=== PATIENT | female | born 1960 | race Caucasian/White ===

== ENCOUNTER → 2021-01-14 | Day surgery (SDC) | payer OTHER ==
[~2021-01-14] MED LIST: ABILIFY2 MG PO; AUGMENTIN 875-1 EACH PO; CLINDAMYCIN HC300 MG PO; CYMBALTA60 MG PO; DULOXETINE HCL60 MG PO; GABAPENTIN800 MG PO; IPRAT-ALBUT 0.5-3 ML INH; KLONOPIN TAB 00.5 MG PO; LISINOPRIL10 MG PO; NEURONTIN 100100 MG PO; PRAVASTATIN SOD20 MG PO; PROVENTIL HFA6.7 GM INH; SPIRONOLACTONE1 EACH PO; ULTRAM50 MG PO
== END | disposition home or self-care (01) ==
LOC: OR 07:27
DX: K57.30 Diverticulosis of large intestine without perforation or abscess without bleeding (principal); K63.89 Other specified diseases of intestine; K64.0 First degree hemorrhoids; J44.9 Chronic obstructive pulmonary disease, unspecified; F17.210 Nicotine dependence, cigarettes, uncomplicated; E66.01 Morbid (severe) obesity due to excess calories; Z68.34 Body mass index [BMI] 34.0-34.9, adult; Z85.3 Personal history of malignant neoplasm of breast
CPT/HCPCS: J2704; J7040

== ENCOUNTER → 2021-03-22 | Outpatient (CLI) | payer OTHER | LOC: CT 13:29 | DX: R10.31 Right lower quadrant pain (principal); I10 Essential (primary) hypertension | CPT/HCPCS: Q9967 ==

== ENCOUNTER 2021-08-24 06:04 | Inpatient (IN) | payer OTHER ==
[~2021-08-24] VITALS: Ht 154.9 cm; Wt 68.0 kg
[~2021-08-24 06:04] MED LIST changes: -NEURONTIN 100100 MG PO; +NEURONTIN400 MG PO
[2021-08-24 06:32] LABS: HEMOGLOBIN 15.4 gm/dl (12.3-15.3); RED BLOOD COUNT 4.91 M/UL (4.00-5.10); WHITE BLOOD COUNT 11.6 K/UL (4.5-11.0)
[2021-08-24 06:47] LABS: BUN/CREATININE RATIO 16 (0-10)
[2021-08-24] MEDS ORDERED: BUPROPION HCL150 M1 PO (10:37)
[2021-08-24] MEDS ORDERED: KLONOPIN0.5 MG PO (10:38)
[2021-08-25 05:34] LABS: BUN/CREATININE RATIO 24 (0-10)
[2021-08-25 05:35] LABS: HEMOGLOBIN 14.5 gm/dl (12.3-15.3); RED BLOOD COUNT 4.67 M/UL (4.00-5.10); WHITE BLOOD COUNT 11.5 K/UL (4.5-11.0)
[2021-08-26 04:46] LABS: HEMOGLOBIN 13.1 gm/dl (12.3-15.3); RED BLOOD COUNT 4.22 M/UL (4.00-5.10)
[2021-08-26 04:59] LABS: WHITE BLOOD COUNT 7.7 K/UL (4.5-11.0)
[2021-08-26 05:14] LABS: BUN/CREATININE RATIO 35 (0-10)
[2021-08-26 21:52] LABS: ACINETOBACTER BAUMANNII Not Detected (Negative); CANDIDA ALBICANS Not Detected (Negative); CANDIDA KRUSEI Not Detected (Negative); CANDIDA TROPICALIS Not Detected (Negative); ENTEROCOCCUS Not Detected (Negative); ESCHERICHIA COLI Not Detected (Negative); HAEMOPHILUS INFLUENZAE Not Detected (Negative); KLEBSIELLA OXYTOCA Not Detected (Negative); KLEBSIELLA PNEUMONIAE Not Detected (Negative); KPC-CARBAPENEM-RESISTANCE GENE Not Detected (Negative); PROTEUS Not Detected (Negative); PSEUDOMONAS AERUGINOSA Not Detected (Negative); SERRATIA MARCESANS Not Detected (Negative); STAPHYLOCOCCUS AUREUS Not Detected (Negative); STREP AGALACTIAE (GROUP B) Not Detected (Negative); STREP PYOGENES (GROUP A) Not Detected (Negative); STREPTOCOCCUS Not Detected (Negative); mecA (METHICILLIN RESIST GENE Not Detected (Negative); vanA/B (VANCOMYCIN RESIST GENE Not Detected (Negative)
[2021-08-26 23:08] LABS: STAPHYLOCOCCUS DETECTED (Negative)
[2021-08-27 05:25] LABS: HEMOGLOBIN 14.1 gm/dl (12.3-15.3); RED BLOOD COUNT 4.59 M/UL (4.00-5.10); WHITE BLOOD COUNT 7.6 K/UL (4.5-11.0)
[2021-08-27 08:54] LABS: BUN/CREATININE RATIO 50 (0-10)
[2021-08-27 12:26] LABS: BUN/CREATININE RATIO 45 (0-10)
[2021-08-28 04:47] LABS: HEMOGLOBIN 13.8 gm/dl (12.3-15.3); RED BLOOD COUNT 4.59 M/UL (4.00-5.10); WHITE BLOOD COUNT 9.5 K/UL (4.5-11.0)
[2021-08-28 05:08] LABS: BUN/CREATININE RATIO 36 (0-10)
[2021-08-29 05:21] LABS: HEMOGLOBIN 12.7 gm/dl (12.3-15.3); WHITE BLOOD COUNT 7.9 K/UL (4.5-11.0)
[2021-08-29 05:23] LABS: RED BLOOD COUNT 4.13 M/UL (4.00-5.10)
[2021-08-29 05:40] LABS: BUN/CREATININE RATIO 45 (0-10)
[2021-08-30 05:47] LABS: BUN/CREATININE RATIO 42 (0-10)
[2021-08-31 02:25] LABS: HEMOGLOBIN 13.2 gm/dl (12.3-15.3); RED BLOOD COUNT 4.23 M/UL (4.00-5.10)
[2021-08-31 02:27] LABS: WHITE BLOOD COUNT 12.9 K/UL (4.5-11.0)
[2021-08-31 02:47] LABS: BUN/CREATININE RATIO 41 (0-10)
[2021-09-01 05:22] LABS: HEMOGLOBIN 12.8 gm/dl (12.3-15.3); RED BLOOD COUNT 4.13 M/UL (4.00-5.10)
[2021-09-01 05:32] LABS: WHITE BLOOD COUNT 8.5 K/UL (4.5-11.0)
[2021-09-01 05:55] LABS: BUN/CREATININE RATIO 44 (0-10)
[2021-09-02 05:20] LABS: HEMOGLOBIN 13.2 gm/dl (12.3-15.3); RED BLOOD COUNT 4.25 M/UL (4.00-5.10)
[2021-09-02 05:21] LABS: WHITE BLOOD COUNT 10.9 K/UL (4.5-11.0)
[2021-09-02 06:00] LABS: BUN/CREATININE RATIO 43 (0-10)
[2021-09-02 15:41] LABS: ACINETOBACTER BAUMANNII Not Detected (Negative); ENTEROCOCCUS Not Detected (Negative); ESCHERICHIA COLI Not Detected (Negative); HAEMOPHILUS INFLUENZAE Not Detected (Negative); KLEBSIELLA OXYTOCA Not Detected (Negative); KLEBSIELLA PNEUMONIAE Not Detected (Negative); KPC-CARBAPENEM-RESISTANCE GENE Not Detected (Negative); PROTEUS Not Detected (Negative); PSEUDOMONAS AERUGINOSA Not Detected (Negative); SERRATIA MARCESANS Not Detected (Negative); STAPHYLOCOCCUS AUREUS Not Detected (Negative); STREP AGALACTIAE (GROUP B) Not Detected (Negative); STREP PYOGENES (GROUP A) Not Detected (Negative); STREPTOCOCCUS Not Detected (Negative); vanA/B (VANCOMYCIN RESIST GENE Not Detected (Negative)
[2021-09-02 15:42] LABS: CANDIDA ALBICANS Not Detected (Negative); CANDIDA KRUSEI Not Detected (Negative); CANDIDA TROPICALIS Not Detected (Negative)
[2021-09-02 16:52] LABS: mecA (METHICILLIN RESIST GENE DETECTED (Negative)
[2021-09-02 16:53] LABS: STAPHYLOCOCCUS DETECTED (Negative)
[2021-09-03 05:05] LABS: HEMOGLOBIN 13.6 gm/dl (12.3-15.3); RED BLOOD COUNT 4.39 M/UL (4.00-5.10)
[2021-09-04 04:54] LABS: HEMOGLOBIN 13.3 gm/dl (12.3-15.3); RED BLOOD COUNT 4.44 M/UL (4.00-5.10)
[2021-09-04 04:57] LABS: BUN/CREATININE RATIO 33 (0-10)
[2021-09-04 04:59] LABS: WHITE BLOOD COUNT 15.2 K/UL (4.5-11.0)
[2021-09-05 05:09] LABS: HEMOGLOBIN 14.1 gm/dl (12.3-15.3); RED BLOOD COUNT 4.62 M/UL (4.00-5.10); WHITE BLOOD COUNT 11.8 K/UL (4.5-11.0)
[2021-09-05 05:36] LABS: BUN/CREATININE RATIO 35 (0-10)
[2021-09-05] MEDS ORDERED: LOPRESSOR 50 MG50 MG PO (17:24)
[2021-09-05] MEDS ORDERED: FUROSEMIDE20 MG PO (17:24)
[2021-09-05] MEDS ORDERED: DIAMOX 250 MG250 MG PO (17:24)
== END 2021-09-05 18:24 | disposition left against medical advice (07) | DRG 871 ==
LOC: ER1 06:04 → CCU 08:23 → PROG CARE 08:23 → CDU 08:23 → CCU 11:04 → PROG CARE 08-30 15:38 → CCU 08-31 18:34 → PROG CARE 09-04 16:01
PROVIDERS: Emergency Medicine; Internal Medicine; Physician Assistant; ADMIT Internal Medicine
PROC: 5A09457 Assistance with Respiratory Ventilation, 24-96 Consecutive Hours, Continuous Positive Airway Pressure (ICD-10-PCS; 2021-08-24)
PROC: B24BZZZ Ultrasonography of Heart with Aorta (ICD-10-PCS; principal; 2021-08-25)
PROC: 5A0935A Assistance with Respiratory Ventilation, Less than 24 Consecutive Hours, High Flow/Velocity Cannula (ICD-10-PCS; 2021-08-27)
PROC: 5A0945A Assistance with Respiratory Ventilation, 24-96 Consecutive Hours, High Flow/Velocity Cannula (ICD-10-PCS; 2021-08-30)
DX: A41.01 Sepsis due to Methicillin susceptible Staphylococcus aureus (principal); J69.0 Pneumonitis due to inhalation of food and vomit; Z20.822 Contact with and (suspected) exposure to COVID-19; I50.33 Acute on chronic diastolic (congestive) heart failure; G92.8 Other toxic encephalopathy; I33.0 Acute and subacute infective endocarditis; J15.211 Pneumonia due to Methicillin susceptible Staphylococcus aureus; J96.21 Acute and chronic respiratory failure with hypoxia; J96.22 Acute and chronic respiratory failure with hypercapnia; J44.1 Chronic obstructive pulmonary disease with (acute) exacerbation; J44.0 Chronic obstructive pulmonary disease with (acute) lower respiratory infection; C64.9 Malignant neoplasm of unspecified kidney, except renal pelvis; E87.3 Alkalosis; E87.1 Hypo-osmolality and hyponatremia; D84.9 Immunodeficiency, unspecified; F41.9 Anxiety disorder, unspecified; F19.959 Other psychoactive substance use, unspecified with psychoactive substance-induced psychotic disorder, unspecified; R65.20 Severe sepsis without septic shock; E78.5 Hyperlipidemia, unspecified; K43.9 Ventral hernia without obstruction or gangrene; F17.299 Nicotine dependence, other tobacco product, with unspecified nicotine-induced disorders; R73.9 Hyperglycemia, unspecified; E66.9 Obesity, unspecified; G89.29 Other chronic pain; R74.01 Elevation of levels of liver transaminase levels; I11.0 Hypertensive heart disease with heart failure; I95.9 Hypotension, unspecified; F32.A Depression, unspecified; R25.1 Tremor, unspecified; E83.42 Hypomagnesemia; I08.1 Rheumatic disorders of both mitral and tricuspid valves; G47.00 Insomnia, unspecified; I27.20 Pulmonary hypertension, unspecified; J32.9 Chronic sinusitis, unspecified; E87.5 Hyperkalemia; E87.70 Fluid overload, unspecified; B95.8 Unspecified staphylococcus as the cause of diseases classified elsewhere; Z90.13 Acquired absence of bilateral breasts and nipples; Z85.3 Personal history of malignant neoplasm of breast; Z90.49 Acquired absence of other specified parts of digestive tract; Z90.710 Acquired absence of both cervix and uterus; Z91.040 Latex allergy status; Z80.2 Family history of malignant neoplasm of other respiratory and intrathoracic organs; Z83.3 Family history of diabetes mellitus; Z68.28 Body mass index [BMI] 28.0-28.9, adult
CPT/HCPCS: ECHO; 36415; 36600; 70450; 71045; 72131; 80048; 80053; 80202; 82550; 82553; 82803; 82962; 83036; 83605; 83735; 83874; 83880; 84100; 84132; 84484; 85025; 85027; 86140; 87040; 87077; 87081; 87086; 87150; 87186; 87880; 93005; 93306; 93308; 93970; 94640; 94660; 94664; 94760; 97116-GP-CQ; 97161; 97164; 97530; 99285; J0456; J0692; J0696; J1100; J1120; J1644; J1940; J2060; J2270; J2920; J2930; J3370; J3475; J7030; J7040; J7050; U0002

== ENCOUNTER 2021-09-06 11:46 | Inpatient (IN) | payer OTHER ==
[~2021-09-06] VITALS: Ht 154.9 cm; Wt 74.8 kg
[~2021-09-06 11:46] MED LIST changes: +BUPROPION HCL150 M1 PO; +DIAMOX 250 MG250 MG PO; +FUROSEMIDE20 MG PO; +KLONOPIN0.5 MG PO; +LOPRESSOR 50 MG50 MG PO
[2021-09-06 13:28] LABS: HEMOGLOBIN 14.9 gm/dl (12.3-15.3); RED BLOOD COUNT 4.75 M/UL (4.00-5.10); WHITE BLOOD COUNT 17.5 K/UL (4.5-11.0)
[2021-09-06 13:51] LABS: BUN/CREATININE RATIO 32 (0-10)
== END 2021-09-06 16:00 | disposition left against medical advice (07) | DRG 314 ==
LOC: ER1 11:46 → CDU 13:31
PROVIDERS: Emergency Medicine; Internal Medicine; ADMIT Internal Medicine
DX: T80.219A Unspecified infection due to central venous catheter, initial encounter (principal); A41.1 Sepsis due to other specified staphylococcus; Z20.822 Contact with and (suspected) exposure to COVID-19; I33.0 Acute and subacute infective endocarditis; J96.21 Acute and chronic respiratory failure with hypoxia; J96.22 Acute and chronic respiratory failure with hypercapnia; J69.0 Pneumonitis due to inhalation of food and vomit; J44.1 Chronic obstructive pulmonary disease with (acute) exacerbation; C64.9 Malignant neoplasm of unspecified kidney, except renal pelvis; C79.51 Secondary malignant neoplasm of bone; B95.7 Other staphylococcus as the cause of diseases classified elsewhere; F41.9 Anxiety disorder, unspecified; K43.9 Ventral hernia without obstruction or gangrene; I10 Essential (primary) hypertension; Y83.8 Other surgical procedures as the cause of abnormal reaction of the patient, or of later complication, without mention of misadventure at the time of the procedure; E11.9 Type 2 diabetes mellitus without complications; G89.29 Other chronic pain; F17.210 Nicotine dependence, cigarettes, uncomplicated; E78.5 Hyperlipidemia, unspecified; Z90.13 Acquired absence of bilateral breasts and nipples; Z90.710 Acquired absence of both cervix and uterus; Z90.49 Acquired absence of other specified parts of digestive tract; Z90.5 Acquired absence of kidney; Z91.040 Latex allergy status; Z80.8 Family history of malignant neoplasm of other organs or systems
CPT/HCPCS: 36600; 71045; 80053; 80307; 82803; 82962; 83605; 85025; 87040; 93005; 94664; 99285; J0692; J3370; J7030; J7050; U0002

== ENCOUNTER → 2021-10-04 | Outpatient (CLI) | payer OTHER | LOC: OPSV 06:38 | DX: J18.9 Pneumonia, unspecified organism (principal) | CPT/HCPCS: C1751 ==

== ENCOUNTER → 2021-10-05 | Outpatient (CLI) | payer OTHER | LOC: OPSV 14:00 | DX: J18.9 Pneumonia, unspecified organism (principal); Z45.2 Encounter for adjustment and management of vascular access device | CPT/HCPCS: G0463 ==

== ENCOUNTER → 2021-10-14 | Outpatient (CLI) | payer OTHER ==
--- NOTE | 2021-10-14 14:32 | NUR ---
Single lumen PICC line inserted in the right basilic vein utilizing US guidance, cut to 36 cm. Upper arm circ = 30 cm, lower arm circ = 28 cm. 3CG technology used to confirm picc tip in SVC. No complications. Aspirates and flushes well. Sterile technique used throughout case. Sterile dressing placed over site, then dated.
== END ==
LOC: OPSV 08:00
DX: J18.9 Pneumonia, unspecified organism (principal)

== ENCOUNTER → 2021-10-18 | Outpatient (CLI) | payer OTHER | LOC: OPSV 14:52 | DX: Z45.2 Encounter for adjustment and management of vascular access device (principal) | CPT/HCPCS: G0463 ==

== ENCOUNTER → 2021-11-10 | Outpatient (CLI) | payer OTHER | LOC: KOH-I 12:56 | DX: F17.210 Nicotine dependence, cigarettes, uncomplicated (principal); R91.8 Other nonspecific abnormal finding of lung field | CPT/HCPCS: 71271 ==

== ENCOUNTER → 2021-11-10 | Outpatient (CLI) | payer OTHER ==
[2021-11-10 12:42] LABS: HEMOGLOBIN 15.5 gm/dl (12.3-15.3); RED BLOOD COUNT 4.94 M/UL (4.00-5.10); WHITE BLOOD COUNT 8.3 K/UL (4.5-11.0)
== END ==
LOC: ECHO 11:43 → LAB 11:43 → KOH-I 11:45 → ECHO 11:45 → KOH-I 13:00
PROVIDERS: Student in an Organized Health Care Education/Training Program
DX: I38 Endocarditis, valve unspecified (principal)
CPT/HCPCS: 36415; 80053; 85025; 87040

== ENCOUNTER → 2021-11-15 | Outpatient (CLI) | payer OTHER | LOC: ECHO 09:00 | DX: I08.1 Rheumatic disorders of both mitral and tricuspid valves (principal) | CPT/HCPCS: ECHO; 93306 ==

== ENCOUNTER → 2022-02-11 | Outpatient (CLI) | payer OTHER | LOC: CT 15:17 | DX: C50.919 Malignant neoplasm of unspecified site of unspecified female breast (principal); C64.9 Malignant neoplasm of unspecified kidney, except renal pelvis | CPT/HCPCS: 36415; 71260; 82565; 84520; Q9967 ==